=== PATIENT | female | born 1965 | race Hispanic/Latino ===

== ENCOUNTER → 2017-08-23 | Day surgery (SDC) | payer BC ==
[~2017-08-23] MED LIST: ACETAMINOPHEN 1000 MG/100 ML IV ONE; BACITRACIN 50,000 UNIT VIAL ONE; BUPIVACAINE HCL 0.5% INJ 30 ML VIAL INJ ONE; CEFAZOLIN SOD 2 GM/D5W 50ML 50 ML IV ONE; DEXAMETHASONE SOD PHOS INJ 4 MG/ML VIAL ONE; FENTANYL CITRATE/PF 100MCG/2 ML INJ ONE; IBUPROFEN400 MG PO; KETOROLAC TROMETHAMINE 30 MG/ML VIAL ONE; LIDOCAINE HCL 2% LOCAL INJ 5 ML SDV VIAL INJ ONE; MEPERIDINE HCL INJ 50 MG/ML INJ ONE; MIDAZOLAM HCL 2 MG/2 ML VIAL ONE; ONDANSETRON HCL INJ 2 MG/ML VIAL ONE; PROPOFOL IV EMULSION 10 MG/ML 20 ML VIAL ONE; SEVOFLURANE INHAL SOLN 250 ML PEN BTL ONE
--- NOTE | 2017-08-25 09:48 | Operative Report ---
DATE OF PROCEDURE: August 23, 2017 PREOPERATIVE DIAGNOSIS: Comminuted left patella fracture. POSTOPERATIVE DIAGNOSIS: Comminuted left patella fracture. OPERATIONS/PROCEDURES PERFORMED 1. The patient underwent a left partial patellectomy. 2. Repair of the patellar tendon to the patella. BOX HING[employer] LOCK ATT[employer]ER: None. ANESTHESIA: General endotracheal intubation anesthesia. IV FLUIDS: Per the anesthesia record. BRIEF DESCRIPTION OF THE PATIENT'S OPERATIVE PROCEDURE: Ms. Nichols was taken to the operating room and placed in the supine position on the operating table. Following induction of general anesthesia, as well as endotracheal intubation, the patient's left lower extremity was examined under anesthesia. She was found to have bruise and ecchymosis involving the left knee and lower leg. The patient's compartments were supple. Fluoroscopic evaluation demonstrated a displaced patella fracture. The patient's lower extremity was prepped and draped in a standard surgical fashion. An incision was created over the anterior aspect of the knee joint. This incision was carried through the skin only. Blunt dissection was used to deepen the incision down to the level of the patient's extensor mechanism. There was a fracture of the distal pole of the patella. The fracture site was cleaned thoroughly. Examination of the distal fracture fragment demonstrated a very small fragment of the patella, including a 1.5-cm segment of the articular surface. This section was severely comminuted. Given the degree of damage, the distal pole of the patella was excised. The knee was copiously irrigated. The patellar tendon was also copiously irrigated. A FiberWire suture was then woven through the patellar tendon in a whip stitch type fashion. Drill holes were then placed in the body of the patella and the stitches were pulled through the body of the patella. They were tied over the bony proximal surface of the patella reapproximating the patellar tendon to the inferior edge of the main body of the patella. This resulted in re-establishment of the alignment of the patellar tendon with the patella itself with excellent reapproximation. The medial and lateral patellar retinacular was also repaired at this time. The wound was copiously irrigated and closed in a multilayer fashion. Sterile dressings were applied. The patient was provided a knee immobilizer, awakened and taken to the postanesthesia care unit in stable condition. Job#: [id number]
== END | disposition home or self-care (01) ==
LOC: OR 09:20
PROVIDERS: ATTEND Specialist
DX: S82.042A Displaced comminuted fracture of left patella, initial encounter for closed fracture (principal); Z01.810 Encounter for preprocedural cardiovascular examination
CPT/HCPCS: 93005; J1100; J1885; J2001; J2175; J2250; J2405